=== PATIENT | male | born 1990 | race African-American/Black ===

== ENCOUNTER 2024-11-22 08:21 | Emergency (ER) | payer OTHER ==
[~2024-11-22] VITALS: Ht 180.3 cm; Wt 79.4 kg
[2024-11-22 08:24] VITALS: O2SAT 100
[2024-11-22 08:25] VITALS: TEMP 36.7; O2SAT 100
[2024-11-22] MEDS ORDERED: CLOT10TR2 MT (08:44)
[2024-11-22 08:45] VITALS: BP 137/61; PULSE 66; RESP 16
[2024-11-22] MEDS ORDERED: IBUP-2028 MT (08:45)
[2024-11-22] MEDS: KETOROLAC 30MG/ML VIAL IM ONE (08:45)
[2024-11-22] MEDS: CEFTRIAXONE SODIUM 500MG VIAL IM ONE (08:45)
[2024-11-22] MEDS: LIDOCAINE HCL/PF 1% 10 MG/ML 5ML VIAL INFIL ONE (08:45)
[2024-11-24 04:07] LABS: CHLAMYDIA TRACHOMATIS NAA Negative (Negative); NEISSERIA GONORRHOEAE NAA Negative (Negative)
== END 2024-11-22 09:12 | disposition home or self-care (01) ==
LOC: ER 08:21
DX: J03.90 Acute tonsillitis, unspecified (principal); B37.0 Candidal stomatitis
CPT/HCPCS: 99284; 87491; 87591; 87430; 87070; 96372; J1885; J0696; J2003